=== PATIENT | female | born 1955 | race Caucasian/White ===

== ENCOUNTER 2020-11-09 18:11 | Emergency (ER) | payer OTHER ==
[~2020-11-09] VITALS: Ht 165.1 cm; Wt 65.3 kg
[2020-11-09] MEDS ORDERED: IBUPROFEN 600600 M1 PO (19:45)
[2020-11-09] MEDS ORDERED: HYDROCODON-ACE1 EAC7 PO (19:45)
[2020-11-09 20:24] VITALS: BP 163/73
== END 2020-11-09 20:25 | disposition home or self-care (01) ==
LOC: M.ERS 18:11
DX: S52.592A Other fractures of lower end of left radius, initial encounter for closed fracture (principal); S52.591A Other fractures of lower end of right radius, initial encounter for closed fracture; W18.39XA Other fall on same level, initial encounter; Y93.68 Activity, volleyball (beach) (court); Y92.89 Other specified places as the place of occurrence of the external cause; Y99.8 Other external cause status

== ENCOUNTER → 2020-11-13 | Outpatient (CLI) | payer OTHER ==
[~2020-11-13] MED LIST: HYDROCODON-ACE1 EAC7 PO; IBUPROFEN 600600 M1 PO
== END ==
LOC: M.LAB 11:58
PROVIDERS: ATTEND Orthopaedic Surgery
DX: Z01.812 Encounter for preprocedural laboratory examination (principal); Z20.822 Contact with and (suspected) exposure to COVID-19; S52.92XA Unspecified fracture of left forearm, initial encounter for closed fracture; S52.91XA Unspecified fracture of right forearm, initial encounter for closed fracture; X58.XXXA Exposure to other specified factors, initial encounter; Y93.89 Activity, other specified; Y92.89 Other specified places as the place of occurrence of the external cause; Y99.8 Other external cause status

== ENCOUNTER 2020-11-18 11:18 | Observation (INO) | payer OTHER ==
--- NOTE | ~2020-11-18 | OP ---
[facility] [place] [address] OPERATIVE REPORT Name: AB MARSH Room: [address] Julio Ortiz#: [id number] Admission: 11/18/20 Attend Phys: Nathaly Greene MD Discharge: 11/19/20 Date of : 55 Report #: [id number] THIS REPORT FOR: cc: Jeff Olivera Brad DO ~ Bib Tyson DO DATE OF SERVICE: 11/18/2020 PREOPERATIVE DIAGNOSIS: Bilateral displaced comminuted intraarticular distal radius fractures. POSTOPERATIVE DIAGNOSIS: Bilateral displaced comminuted intraarticular distal radius fractures. PROCEDURES: 1. Open reduction and internal fixation, right intraarticular 3-part distal radius fracture. 2. Open reduction and internal fixation, left 3-part intraarticular distal radius fracture. SURGEON: Bib Tyson DO AZURE ARCHITECT: Rocael Lemons DO ANESTHESIA: General. ANTIBIOTICS: Ancef. INTRAVENOUS FLUIDS: 1500 mL lactated Ringer's. BLOOD LOSS: 35 mL in total. COMPLICATIONS: None. SPECIMENS: None. DRAINS: None. TOURNIQUET TIME: 40 minutes on the left, 27 minutes on the right at 250 mmHg. IMPLANTS: Adrianne volar locking distal radius plate with locking screws distally, cortical screws proximally, 2.7 mm for all. INDICATIONS FOR PROCEDURE: The patient had an intraarticular displaced distal radius fractures. We went over treatment options that did include nonoperative. [facility] [place] [address] OPERATIVE REPORT Name: AB MARSH Room: [address] Julio Ortiz#: [id number] Admission: 11/18/20 Attend Phys: Nathaly Greene MD Discharge: 11/19/20 Date of : 55 Report #: [id number] She did not wish that. She ____ both at clinic visit and surgery. In preoperative area, we went over that plan and risks and complications of surgery. She acknowledged, accepted and gave consent to proceed. DESCRIPTION OF PROCEDURE: I marked the bilateral upper extremities in the presence of operative team members. Everyone agreed correct. She was taken back to the operative suite, placed on the operating table supine, well-padded and secured. General anesthetic administered. We began with the left. The left upper extremity was sterilely prepped and draped in standard fashion. Timeout was performed indicating correct patient, procedure, site, antibiotics and that implants were present and sterile. All team members agreed. A modified volar Alex approach was used. We went up with tourniquet. Scalpel was taken through skin, full thickness flaps down. FCR visualized, incised, taken ulnar. Fascia over FPL incised proximally and distally. FPL taken ulnar. Radial artery identified and protected throughout the entirety of the case. Incised pronator off the radius and went in the radial. This side was significantly more comminuted than the right. Due to comminution, we were able to overall get a reduction of the pins and placed multiple pins. She had a bone defect. We used a graft to both bolster this up to help it from collapsing and get a better reduction, which did work quite well. The plate was placed in the appropriate position being proximal to watershed and also on the radial and ulnar position pinned. Multiplanar C-arm imaging confirmed. We drilled, measured and placed unicortical locking screws distally and cortical screws proximally that were bicortical. C-arm images showed appropriate reduction and placement of all hardware. We were able to take the wrist through full range of motion in regards to flexion, extension, pronation, supination, abduction, adduction, deviation, stable construct, stable reduction. No evidence on x-ray or on physical exam of DRUJ instability. We saved the images, dismissed C-arm. We went down with tourniquet, total time as mentioned above. Maintained hemostasis. Irrigated with normal saline. Closed with 3-0 Monocryl buried deep and then a 3-0 nylon. Debriefing performed confirming procedure, blood loss and all counts were correct and final. Team members agreed. It should be noted that when the tourniquet went down, the radial artery was palpable with no injury and the hand was warm and well perfused. With the sterile splint placed, we then took down the drapes and turned our attention to the right upper extremity. This was sterilely prepped and draped in a standard fashion. Timeout was performed indicating correct patient, procedure, site, antibiotics and that implants were present and sterile. Modified volar Alex approach was used. Scalpel through skin, full thickness down to FCR was taken ulnarly after incision through fascia, FPL muscle belly was taken ulnar, visualized and protected through the radial artery throughout the entirety of the case. Pronator was taken off ____ reduction. Comminuted fracture, intraarticular, 3-part, reduced into position. C-arm confirmed this reduction and placed the plate in the appropriate position radial, ulnar and proximal to the watershed line. C-arm confirmed this. Drilled, measured and placed unicortical locking [address] [address] OPERATIVE REPORT Name: AB MARSH Room: [address] Julio MadieEduar#: [id number] Admission: 11/18/20 Attend Phys: Nathaly Greene MD Discharge: 11/19/20 Date of : 55 Report #: [id number] screws distally. Drilled, measured and placed cortical screws proximally. Removed any provisional fixation. Final C-arm images showed excellent placement of hardware and fracture reduction with no evidence of DRUJ instability. Full motion could be obtained before leaving the OR. Let down tourniquet, total time as mentioned above. Maintained hemostasis. Irrigated thoroughly with normal saline. Radial artery palpable. Hand warm and well perfused. 3-0 Monocryl deep, 3-0 nylon for skin. Debriefing performed confirming procedure, blood loss and all counts were correct and final. All team members agreed. Sterile splint applied. She was extubated and taken to PACU in stable condition. POSTOPERATIVE COURSE AND EVALUATION: I spoke with her daughter, addressed questions that she had to satisfaction. She was very thankful for my time and efforts. The patient was resting in PACU with stable vital signs, pain controlled, neurovascularly intact. Compartments soft and compressible. We will see back in clinic. We asked them to make that appointment. Nonweightbearing motion encouraged. Wear allowed. Vitamin D and C. COVID protocol followed at all times. Aspirin and mechanical measures for DVT prophylaxis. By: [id number] Tyson DO /nt
[2020-11-18 11:58] LABS: HEMATOCRIT 37.1 % (37.0-47.0); HEMOGLOBIN 12.6 gm/dL (12.0-15.0); MCH 30.7 pg (26.0-34.0); MCHC 34.1 g/dL (28.0-37.0); MCV 90.2 fL (80.0-100.0); MPV 7.5 fl. (7.2-11.1); RBC 4.11 mil/uL (4.20-5.00); RDW-CV 13.1 % (10.5-14.5); WBC 7.1 thou/uL (4.0-11.0)
[2020-11-18 12:00] LABS: CALCIUM 9.6 mg/dL (8.5-10.1); CREATININE 0.9 mg/dL (0.6-1.3); POTASSIUM 4.1 mmol/L (3.5-5.1)
--- NOTE | 2020-11-18 12:52 | EKG ---
[place] [address] ELECTROCARDIOGRAM REPORT Name: AB MARSH Room: [facility]#: [id number] Admission: 11/18/20 Attend Phys: Bib Tyson DO Discharge: Date of : 55 Date of Service: 11/18/20 1237 Report #: [id number] THIS REPORT FOR: //name// [facility] Test Date: 2020-11-18 Test Time: 12:37:59 Pat Name: AB MARSH Department: Room: Gender: F [employer] President: AJ : 1955 Requested By: Dangelo Koenig Order Number: [id number] MD: Vipul Morales Measurements Intervals [place] Rate: 87 P: 76 WI: 139 QRS: 15 QRSD: 88 T: 66 QT: 389 QTc: 468 Interpretive Statements Sinus rhythm Borderline ST depression, diffuse leads No previous ECG available for comparison Electronically Signed On 11-18-2020 12:52:06 COMPUTER SYSTEM VALIDATION SPECIALIST by Vipul Morales [email or web address] <ELECTRONICALLY SIGNED> By: Vipul Morales MD, [facility] 11/18/20 1252 1237 1237 Viplu Morales MD, FACC /EPI
[2020-11-18 19:40] VITALS: BP 158/78
[2020-11-19] VITALS: BP 146/67
[2020-11-19 04:00] VITALS: BP 153/77
--- NOTE | 2020-11-19 05:45 | NUR ---
PATIENT SLEPT WELL DURING THIS SHIFT. PT UP TO BATHROOM WITH STANDBY ASSIST TO VOID. PT WITH BOTH FOREARMS ELEVATED ON PILLOWS. PT ABLE TO MOVE FINGERS; FINGERS WARM TO TOUCH; UNABLE TO CHECK RADIAL PULSES. PT DID NOT REQUEST PAIN MEDICATION DURING THIS SHIFT. PT PROVIDED WITH SOFT TOUCH CALL LIGHT PLACED NEAR RT ELBOW. PT WORE FOOT PUMPS MOST OF THE NIGHT. FREQUENTLY USED ITEMS AND CALL LIGHT WITHIN REACH. WILL CONTINUE TO MONITOR.
[2020-11-19 06:10] LABS: HEMATOCRIT 30.3 % (37.0-47.0); MCH 31.2 pg (26.0-34.0); MCHC 34.7 g/dL (28.0-37.0); MCV 89.9 fL (80.0-100.0); MPV 8.5 fl. (7.2-11.1); RBC 3.37 mil/uL (4.20-5.00); RDW-CV 12.9 % (10.5-14.5); WBC 10.5 thou/uL (4.0-11.0)
[2020-11-19 06:25] LABS: CALCIUM 8.8 mg/dL (8.5-10.1); CREATININE 0.9 mg/dL (0.6-1.3); POTASSIUM 4.1 mmol/L (3.5-5.1)
[2020-11-19 06:28] LABS: HEMOGLOBIN 10.5 gm/dL (12.0-15.0)
[2020-11-19 08:00] VITALS: BP 169/74
[2020-11-19 10:55] VITALS: BP 169/74
--- NOTE | 2020-11-19 14:10 | NUR ---
Nutrition: Pt admitted with ORIF bilat wrists. Consult received for difficulty eating. Pt is discharging home today. She has a great appetite and said the food here is delicious. She only has issues with mechanics of hands when eating. Her hands/wrists are wrapped currently. She stated she has help from family set up for all meals. Offered her suggestions to help with meal replacements/snacks - having someone open an Ensure in the morning and keeping it with a straw in the fridge for a meal replacement if needed. Otherwise, no nutrition concerns. She did work with therapies. Labs, meds noted. Low nutrition risk.
--- NOTE | 2020-11-19 14:11 | NUR ---
PT.UP IN CHAIR. OT WORKING WITH PT. DISCUSSED HH AND IF PT.WOULD BE INTERESTED IN IT. WOULD ONLY NEED OT OR HOME HEALTH AIDE. SHE USUALLY LIVES ALONE BUT SINCE SHE FX BOTH WRISTS, HER DAUGHTER,THAT LIVES DOWN THE STREET HAS BEEN HELPING HER. SHE BATHES HER AND FEEDS HER, HELPS HER DRESS, AND TOILETS HER. SHE SAID SHE HAS SOME GOOD FRIENDS, A SISTER AND HER DAUGHTER THAT WILL TAKE TURNS STAYING WITH HER AND HELPING HER. SHE SAID SHE WAS FINE WITH HER DAUGHTER BATHEING HER. IT WAS WORKING OUT OK. SHE DID NOT FEEL SHE NEEDED HOME HEALTH. OT WORKING WITH BUILT UP EATING UTENSILS AND TOOTH BRUSH THAT PT.CAN USE WHILE FINGERS ARE SWOLLEN ADN BANDAGES ON. PT.TO DISCHARGE LATER TODAY.
--- NOTE | 2020-11-19 15:53 | NUR ---
PT DISCHARGED HOME WITH ALL BELONGINGS ACCOMPANIED BY DAUGHTER. [employer]INE [employer] REMOVED HUB INTACT. PT UNSTOOD ALL DISCHARGE INSTRUCTIONS. PT DENIED PAIN ON DISCHARGE.
== END 2020-11-19 15:30 | disposition home or self-care (01) ==
LOC: M.SUR 11:18 → M.3W 18:49 → M.TBA-ER 18:49 → M.3W 19:56
PROVIDERS: Orthopaedic Surgery; ADMIT Family Medicine; ATTEND Family Medicine
DX: S52.572A Other intraarticular fracture of lower end of left radius, initial encounter for closed fracture (principal); S52.571A Other intraarticular fracture of lower end of right radius, initial encounter for closed fracture; R42 Dizziness and giddiness; R11.0 Nausea; I16.0 Hypertensive urgency; W18.30XA Fall on same level, unspecified, initial encounter; Y93.68 Activity, volleyball (beach) (court); Y92.89 Other specified places as the place of occurrence of the external cause